=== PATIENT | male | born 1960 | race Caucasian/White ===

== ENCOUNTER 2025-07-04 09:34 | Inpatient (IN) | payer MEDICARE, OTHER ==
[~2025-07-04] VITALS: Ht 172.7 cm; Wt 88.0 kg
[2025-07-04] MEDS ORDERED: dexaMETHasone SOD PHOSPHATE 1 ML ONE (12:45)
[2025-07-04] MEDS ORDERED: LIDOCAINE 2%-EPI 1:100,000 30 ML VIAL ONE (12:45)
[2025-07-04] MEDS ORDERED: VANCOMYCIN 1 GM VIAL ONE (12:45)
[2025-07-04] MEDS ORDERED: ROCURONIUM BROMIDE 50 MG/5 ML ONE (12:49)
[2025-07-04] MEDS ORDERED: FENTANYL PF 100MCG/2ML AMPUL ONE ×2 (12:49)
[2025-07-04] MEDS ORDERED: OXYMETAZOLINE HCL NASAL SPRAY 30 ML BOTTLE NS ONE (12:56)
[2025-07-04 16:00] VITALS: BP 106/60; TEMP 97.5; O2SAT 100
[2025-07-04] MEDS ORDERED: ACETAMINOPHEN 325 MG TABLET PO PRN (16:00)
[2025-07-04] MEDS ORDERED: ONDANSETRON HCL/PF 4 MG/2 ML VIAL IVP PRN (16:00)
[2025-07-04] MEDS ORDERED: HYDROMORPHONE 1 MG/1 ML DISP.SYRIN IV PRN (16:00)
[2025-07-04] MEDS: IV NS 0.9% 1,000 ML IV PRN (16:09)
[2025-07-04 16:15] VITALS: BP 108/64; TEMP 97.8; O2SAT 98
[2025-07-04 16:30] VITALS: BP 108/64; TEMP 97.5; O2SAT 98
[2025-07-04 16:45] VITALS: BP 123/73; TEMP 97.6; O2SAT 98
[2025-07-04 17:00] VITALS: BP 127/80; TEMP 97.9; O2SAT 98
[2025-07-04] MEDS: IBUPROFEN 400 MG TABLET PO PRN (17:44)
[2025-07-04] MEDS ORDERED: METF-442 PO (18:33)
[2025-07-04] MEDS ORDERED: GLIP10TA21 PO (18:33)
[2025-07-04] MEDS ORDERED: PIOG15TA8 PO (18:33)
[2025-07-04] MEDS ORDERED: EMPA25TA PO (18:33)
[2025-07-04] MEDS ORDERED: SEMA1PEN SQ (18:33)
[2025-07-04] MEDS ORDERED: LISI20TA30 PO (18:33)
[2025-07-04 20:00] VITALS: BP 106/59; TEMP 97.5; O2SAT 98
[2025-07-05] MEDS: VANCOMYCIN 1 GM in IV D5W 250ml IV SCH
[2025-07-05 08:00] VITALS: BP 110/61; TEMP 98.8; O2SAT 98
[2025-07-05 16:00] VITALS: BP 125/72; TEMP 98.4; O2SAT 97
== END 2025-07-05 17:39 | disposition home or self-care (01) | DRG 141 ==
LOC: DS 09:34 → MED 15:00
PROC: 0N5R0ZZ Destruction of Maxilla, Open Approach (ICD-10-PCS; 2025-07-04)
PROC: 0NSV04Z Reposition Left Mandible with Internal Fixation Device, Open Approach (ICD-10-PCS; 2025-07-04)
PROC: 0N5V0ZZ Destruction of Left Mandible, Open Approach (ICD-10-PCS; 2025-07-04)
PROC: 0NBR0ZZ Excision of Maxilla, Open Approach (ICD-10-PCS; 2025-07-04)
PROC: 0NUV07Z Supplement Left Mandible with Autologous Tissue Substitute, Open Approach (ICD-10-PCS; 2025-07-04)
PROC: 0NUR07Z Supplement Maxilla with Autologous Tissue Substitute, Open Approach (ICD-10-PCS; 2025-07-04)
PROC: 09UQ07Z Supplement Right Maxillary Sinus with Autologous Tissue Substitute, Open Approach (ICD-10-PCS; 2025-07-04)
PROC: 0NSR04Z Reposition Maxilla with Internal Fixation Device, Open Approach (ICD-10-PCS; principal; 2025-07-04 12:30)
DX: S02.40CB Maxillary fracture, right side, initial encounter for open fracture (principal); M87.9 Osteonecrosis, unspecified; Y92.9 Unspecified place or not applicable; M27.2 Inflammatory conditions of jaws; I10 Essential (primary) hypertension; E11.65 Type 2 diabetes mellitus with hyperglycemia; X58.XXXA Exposure to other specified factors, initial encounter; D16.4 Benign neoplasm of bones of skull and face; D16.5 Benign neoplasm of lower jaw bone; S02.609B Fracture of mandible, unspecified, initial encounter for open fracture
CPT/HCPCS: 82962-TC; 87081-TC; A4223; A4338; C1713; G0378; J1100; J1171; J2405; J2704; J2765; J3010; J3373; J3490; J7030; J7050; J7060